=== PATIENT | female | born 1995 | race American Indian/Alaskan Native ===

== ENCOUNTER 2020-03-17 02:44 | Emergency (ER) | payer SELFPAY ==
--- NOTE | 2020-03-17 03:19 | Emergency Department Report ---
ED General Adult HPI - General Chief complaint: Upper Respiratory Infection Stated complaint: SOB Time Seen by Provider: 03/17/20 03:10 Source: patient Mode of arrival: Ambulatory Limitations: No Limitations - History of Present Illness Initial comments: Patient is a 24-year-old female who presents the emergency room with complaints of shortness of breath and chest tightness that began tonight. She states that she had one episode of vomiting. She states that the symptoms began after she smoked marijuana. She states that she smokes marijuana twice a week. She denies any fever, cough, diarrhea, leg swelling, pleuritic chest pain, palpitations. She denies any recent travel, recent surgery, sick contacts, hormone use. She denies any tobacco or alcohol use. She denies any past medical history or allergies to medications. She denies any cardiac family history or family history of DVT/PE. - Related Data Allergies Allergy/AdvReac Type Severity Reaction Status Date / Time No Known Allergies Allergy Unverified 03/17/20 02:51 ED Review of Systems ROS: Stated complaint: SOB Other details as noted in HPI Comment: All other systems reviewed and negative ED Past Medical Hx - Past Medical History Previous Medical History?: Yes - Social History Smoking Status: Never Smoker Substance Use Type: Marijuana ED Physical Exam - General Limitations: No Limitations General appearance: alert, in no apparent distress - Head Head exam: Present: atraumatic, normocephalic - Eye Eye exam: Present: normal appearance - ENT ENT exam: Present: mucous membranes moist - Respiratory Respiratory exam: Present: normal lung sounds bilaterally. Absent: respiratory distress, wheezes, rales, rhonchi, stridor, chest wall tenderness, accessory muscle use, decreased breath sounds, prolonged expiratory - Cardiovascular Cardiovascular Exam: Present: regular rate, normal rhythm, normal heart sounds. Absent: systolic murmur, diastolic murmur, rubs, gallop - Neurological Exam Neurological exam: Present: alert, oriented X3 - Psychiatric Psychiatric exam: Present: normal affect, normal mood - Skin Skin exam: Present: warm, dry, intact ED Course Vital Signs 03/17/20 03/17/20 02:49 04:25 Temperature 97.7 F 97.8 F Pulse Rate 105 H 87 Respiratory 18 16 Rate Blood Pressure 119/83 Blood Pressure 131/89 [Right] O2 Sat by Pulse 99 100 Oximetry ED Medical Decision Making - EKG Data EKG shows normal: sinus rhythm, axis, QRS complexes, ST-T waves Rate: normal - EKG Data 03/17/20 04:15 prolonged KS interval at 250 no STEMI - Radiology Data Radiology results: report reviewed CHEST 2 VIEWS INDICATION / CLINICAL INFORMATION: MAIN: SOB, chest tightness THIS AM. COMPARISON: None available. FINDINGS: SUPPORT DEVICES: None. HEART / MEDIASTINUM: No significant abnormality. LUNGS / PLEURA: No significant pulmonary or pleural abnormality. No pneumothorax. ADDITIONAL FINDINGS: No significant additional findings. IMPRESSION: 1. No significant abnormality. Signer Name: Chetna Beck MD Signed: 03/17/2020 4:03 AM Workstation Name: [id number] Transcribed By: JR Dictated By: Chetna Beck MD Electronically Authenticated By: Chetna Beck MD Signed Date/Time: 03/17/20402 DD/ 2 TD/TT: - Medical Decision Making Patient is a 24-year-old female who presents the emergency room with complaints of shortness of breath and chest tightness that began tonight. She states that she had one episode of vomiting. She states that the symptoms began after she smoked marijuana. She states that she smokes marijuana twice a week. She denies any fever, cough, diarrhea, leg swelling, pleuritic chest pain, palpitations. She denies any recent travel, recent surgery, sick contacts, hormone use. She denies any tobacco or alcohol use. She denies any past medical history or allergies to medications. She denies any cardiac family history or family history of DVT/PE. Initial triage vitals with very mild tachycardia which improved upon repeat to normal. EKG with first-degree AV block otherwise normal, no STEMI. Chest x-ray with no acute process. Breath sounds are clear bilaterally, no respiratory distress, no wheezing, no rales, no rhonchi. Wells score is 0, PE very unlikely. Patient does not have any cardiac risk factors. Discussed marijuana cessation with patient in detail. Will have patient follow-up with outpatient cardiology. Advised patient Follow- up with a primary care doctor. Follow-up with a equity research associate. Please avoid marijuana use. Return to the emergency room for any new or worsening symptoms. - Differential Diagnosis Anxiety, marijuana use, asthma, pleuritis, PTX, pericarditis, PNA, URI Critical care attestation.: If time is entered above; I have spent that time in minutes in the direct care of this critically ill patient, excluding procedure time. ED Disposition Clinical Impression: SOB (shortness of breath), Chest tightness, 1st degree AV block Disposition: DC- TO HOME OR SELFCARE Is pt being admited?: No Does the pt Need Aspirin: No Condition: Stable Instructions: Dyspnea (ED) Additional Instructions: Follow-up with a primary care doctor. Follow-up with a equity research associate. Please avoid marijuana use. Return to the emergency room for any new or worsening symptoms. Referrals: LALY CHRISTIE MD [Staff Physician] - 3-5 Days [facility] [Outside] - 3-5 Days [facility] [Outside] - 3-5 Days JR ZAVALETA MD [Staff Physician] - 3-5 Days Time of Disposition: 04:16 Print Language: CROATIAN
--- NOTE | 2020-03-17 04:08 | XRay Report ---
CHEST 2 VIEWS INDICATION / CLINICAL INFORMATION: MAIN: SOB, chest tightness THIS AM. COMPARISON: None available. FINDINGS: SUPPORT DEVICES: None. HEART / MEDIASTINUM: No significant abnormality. LUNGS / PLEURA: No significant pulmonary or pleural abnormality. No pneumothorax. ADDITIONAL FINDINGS: No significant additional findings. IMPRESSION: 1. No significant abnormality. Signer Name: Chetna Beck MD Signed: 03/17/2020 4:03 AM Workstation Name: [id number]
[2020-03-17 05:05] VITALS: BP 131/89
== END 2020-03-17 04:25 | disposition home or self-care (01) ==
LOC: ED 02:44
DX: I44.0 Atrioventricular block, first degree (principal); R07.89 Other chest pain; R06.02 Shortness of breath; F12.10 Cannabis abuse, uncomplicated
CPT/HCPCS: 71046; 93005